=== PATIENT | female | born 1945 | race Caucasian/White ===

== ENCOUNTER → 2016-03-21 | Outpatient (CLI) | payer OTHER ==
--- NOTE | 2016-03-21 08:36 | US ---
Neck Ultrasound Indication: Nontoxic single nodule. Technique: Thyroid ultrasound is performed. Findings: Right thyroid gland measures 4.4 x 1.2 x 1.2 cm. It is homogeneous. No nodules. No cysts. Left thyroid gland measures 3.8 x 1 x 1.1 cm. The single hypoechoic nodule is avascular, 7 x 4 x 5 mm , and contains no calcifications. Thyroid isthmus is 3 mm. Vascularities are normal. No lymph nodes. Impression: Small 7 mm avascular hypoechoic lesion at the upper aspect of the left thyroid gland. Oth erwise normal thyroid ultrasound.
== END ==
LOC: CIMAGING 07:53
PROVIDERS: ATTEND Nurse Practitioner Family
DX: E04.1 Nontoxic single thyroid nodule (principal); R94.6 Abnormal results of thyroid function studies
CPT/HCPCS: 76536-PO

== ENCOUNTER → 2016-04-05 | Outpatient (CLI) | payer OTHER | LOC: CIMAGING 09:56 | DX: Z12.31 Encounter for screening mammogram for malignant neoplasm of breast (principal) | CPT/HCPCS: G0202 ==

== ENCOUNTER 2016-12-22 15:52 | Emergency (ER) | payer OTHER ==
[2016-12-22 16:14] VITALS: RESP 18; TEMP 98
[2016-12-22 16:41] LABS: PLATELET COUNT 217 10^3/uL (150-400)
--- NOTE | 2016-12-22 16:56 | EDPHY ---
H & P Stated Complaint: c/o N/Chills /Shaking/ blurred vision on and off since 1200- told to go ED Time Seen by Provider: 12/22/16 16:09 HPI/ROS: Chief Complaint: Nausea, blurry vision, shaking, chills HPI: 71-year-old woman who began having some nausea with some blurry vision at 12:30 p.m. this afternoon. She started feeling some shaking and had chills in her hands and feet. She called her primary care physician was instructed to come in to evaluate for possible stroke. Patient states the symptoms are all gone now. She does state that she did start taking Aricept for the 1st time yesterday, she took it yesterday a.m. and took it at 9 o'clock this morning. She is currently being worked up for possible Parkinson's versus MRI, she is being followed by Dr. valentin kennedy, neurologist at [facility]. She denies any cough. No chest pain. No syncope. She is currently complaining of some mild chills in her fingers and toes but otherwise is without complaint. ROS: 10 point Review of Systems is negative except as noted in the HPI. PMH: Spinal stenosis, possible Parkinson's verses Alzheimer's Social History: No smoking, occasional alcohol, no recreational drug use Family History: non-contributory Physical Exam: Gen: Awake, Alert, No Distress HEENT: Nose: no rhinorrhea Eyes: PERRLA, EOMI Mouth: Moist mucosa Neck: Supple, no JVD Chest: nontender, lungs clear to auscultation Heart: S1, S2 normal, no murmur Abd: Soft, non-tender, no guarding Back: no CVA tenderness, no midline tenderness Ext: no edema, non-tender Skin: no rash Neuro: CN II-XII intact, Sensation grossly intact, Strength 5/5 in bilateral upper and lower extremities, normal finger-nose, normal heel-rodarte, normal deep tendon reflexes in bilateral upper lower extremities. - Personal History Current Tetanus Diphtheria and Acellular Pertussis (TDAP): Yes - Medical/Surgical History Other PMH: cerviacl stenosis. Depression - Social History Smoking Status: Never smoked Constitutional: Initial Vital Signs Temperature (C) 36.6 C 12/22/16 16:12 Heart Rate 64 12/22/16 16:12 Respiratory Rate 18 12/22/16 16:12 Blood Pressure 172/80 H 12/22/16 16:12 O2 Sat (%) 94 12/22/16 16:12 O2 Delivery Mode Room Air Allergies/Adverse Reactions: No Known Allergies Allergy (Unverified 12/22/16 16:11) Home Medications: Medication Instructions Recorded Aricept 12/22/16 Flonase Nasal [place] 12/22/16 Hormone Cream 12/22/16 Medical Decision Making ED Course/Re-evaluation: Patient with multiple vague complaints including blurry vision, lightheadedness , chills in her fingers. She is afebrile. Labs in your completely normal. I think her symptoms stem from her just starting Aricept yesterday. She has no symptoms or focal neural deficits here. Given the different symptoms she is having it is not fitting with acute thromboembolic event. I have discussed this awake great length with her. She has normal exam at this time. Will discharge her with follow up with her neurologist at [facility]. - Data Points Laboratory Results: Laboratory Results 12/22/16 Unknown 12/22/16 Unknown 12/22/16 12/22/16 12/22/16 Unknown Unknown Unknown WBC 6.09 10^3/uL 10^3/uL (3.80-9.50) RBC 4.58 10^6/uL 10^6/uL (4.18-5.33) Hgb 14.6 g/dL g/dL (12.6-16.3) Hct 42.5 % % (38.0-47.0) MCV 92.8 fL fL (81.5-99.8) MCH 31.9 pg pg (27.9-34.1) MCHC 34.4 g/dL g/dL (32.4-36.7) RDW 13.2 % % (11.5-15.2) Plt Count 217 10^3/uL 10^3/uL (150-400) MPV 10.0 fL fL (8.7-11.7) Neut % (Auto) 66.5 % % (39.3-74.2) Lymph % (Auto) 25.0 % % (15.0-45.0) [place] % (Auto) 6.9 % % (4.5-13.0) Eos % (Auto) 0.8 % % (0.6-7.6) Baso % (Auto) 0.5 % % (0.3-1.7) Nucleat RBC Rel Count 0.0 % % (0.0-0.2) Absolute Neuts (auto) 4.05 10^3/uL 10^3/uL (1.70-6.50) Absolute Lymphs (auto) 1.52 10^3/uL 10^3/uL (1.00-3.00) Absolute Monos (auto) 0.42 10^3/uL 10^3/uL (0.30-0.80) Absolute Eos (auto) 0.05 10^3/uL 10^3/uL (0.03-0.40) Absolute Basos (auto) 0.03 10^3/uL 10^3/uL (0.02-0.10) Absolute Nucleated RBC 0.00 10^3/uL 10^3/uL (0-0.01) Immature Gran % 0.3 % % (0.0-1.1) Immature Gran # 0.02 10^3/uL 10^3/uL (0.00-0.10) Sodium 138 mEq/L mEq/L (134-144) Potassium 4.5 mEq/L mEq/L (3.5-5.2) Chloride 103 mEq/L mEq/L (97-110) Carbon Dioxide 25 mEq/l mEq/l (22-31) Anion Gap 10 mEq/L mEq/L (8-16) BUN 15 mg/dL mg/dL (7-23) Creatinine 0.8 mg/dL mg/dL (0.6-1.0) Estimated GFR > 60 Glucose 99 mg/dL mg/dL (70-100) Calcium 9.6 mg/dL mg/dL (8.5-10.4) Total Bilirubin 0.8 mg/dL mg/dL (0.1-1.4) AST 28 IU/L IU/L (14-46) ALT 40 IU/L IU/L (9-52) Alkaline Phosphatase 58 IU/L IU/L (38-126) Total Protein 7.2 g/dL g/dL (6.3-8.2) Albumin 4.2 g/dL g/dL (3.5-5.0) Urine Color PALE YELLOW Urine Appearance CLEAR Urine pH 7.0 (5.0-7.5) Ur Specific [place] 1.010 (1.002-1.030) Urine Protein NEGATIVE (NEGATIVE) Urine Ketones NEGATIVE (NEGATIVE) Urine Blood NEGATIVE (NEGATIVE) Urine Nitrate NEGATIVE (NEGATIVE) Urine Bilirubin NEGATIVE (NEGATIVE) Urine Urobilinogen 0.2 EU EU (0.2-1.0) Ur Leukocyte Esterase NEGATIVE (NEGATIVE) Urine Glucose NEGATIVE (NEGATIVE) Departure - Departure Disposition: Home, Routine, Self-Care Clinical Impression: Medication reaction Condition: Good Instructions: Acute Nausea and Vomiting (ED) Additional Instructions: Follow up with your neurologist, Dr. Durán in, in 2-3 days. Return to the emergency department for worsening nausea, vision changes, she chills, fever, cough, chest pain, or any other concerns. Referrals: CAROL DECKER NP [Primary Care Provider] - As per Instructions
[2016-12-22 17:51] VITALS: BP 161/87; PULSE 61; O2SAT 97
== END 2016-12-22 17:50 | disposition home or self-care (01) ==
LOC: CED 15:52
DX: R11.0 Nausea (principal); T44.0X5A Adverse effect of anticholinesterase agents, initial encounter
CPT/HCPCS: 80053-PO; 81003-PO; 85025-PO

== ENCOUNTER → 2017-05-22 | Outpatient (CLI) | payer OTHER | LOC: CIMAGING 14:25 | PROVIDERS: ATTEND Nurse Practitioner Family | DX: Z12.31 Encounter for screening mammogram for malignant neoplasm of breast (principal) ==

== ENCOUNTER 2018-05-07 19:02 | Emergency (ER) | payer OTHER ==
[2018-05-07] MEDS ORDERED: NS 1,000 ML IV ONE (20:03)
[2018-05-07 20:04] VITALS: BP 163/60
--- NOTE | 2018-05-07 20:22 | EDPHY ---
H & P Stated Complaint: Black non sticky bowel motion by 1 today. Time Seen by Provider: 05/07/18 19:37 HPI/ROS: This patient reports dark stools and slight increased number of stools a considered for potential GI bleed this started over the past 24 hr. She reports slight lightheadedness and anxiety with her symptoms. She denies any other associated symptoms. She does recall having this in the past and she does not report any obvious dietary causes. She denies any recent Pepto- Bismol. She denies any significant NSAID use. She has no other associated symptoms. She came in by private vehicle. Constitutional: No significant fatigue. No fevers. HEENT: No complaints Pulmonary: No dyspnea Cardiovascular: No chest pain heart palpitations. GI: No nausea vomiting abdominal pain. She maintains normal appetite. 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 Depression - Social History Smoking Status: Never smoked Alcohol Use: None Drug Use: None - Physical Exam Exam: General Appearance: Alert, no distress. Eyes: Pupils equal and round no pallor or injection. ENT, Mouth: Mucous membranes moist. Respiratory: There are no retractions, lungs are clear to auscultation. Cardiovascular: Regular rate and rhythm. Gastrointestinal: Abdomen is soft and nontender, no masses, bowel sounds normal. Rectal exam: Brown stool, Hemoccult negative Neurological: GCS 15 Skin: Warm and dry, no rashes. Musculoskeletal: Neck is supple nontender. Extremities are symmetrical, full range of motion. Psychiatric: Mood and affect normal DIFFERENTIAL DIAGNOSIS: After history and physical exam differential diagnosis was considered for food intolerance, viral illness, ruled out GI bleed with Hemoccult-negative stool. Constitutional: Initial Vital Signs Temperature (C) 36.6 C 05/07/18 19:20 Heart Rate 52 L 05/07/18 19:20 Respiratory Rate 16 05/07/18 19:20 Blood Pressure 130/81 H 05/07/18 19:20 O2 Sat (%) 98 05/07/18 19:20 O2 Delivery Mode Room Air Allergies/Adverse Reactions: No Known Allergies Allergy (Verified 05/07/18 19:17) Home Medications: Medication Instructions Recorded Flonase Nasal [place] 12/22/16 Hormone Cream 12/22/16 Medical Decision Making ED Course/Re-evaluation: Studies: CBC POC is normal POC basic metabolic panel is normal POC Hemoccult stool is negative. Discussion: Patient with change in stool color but Hemoccult-negative stable with normal H&H and platelets here tonight. She will follow up with Gastroenterology for any ongoing symptoms. - Data Points Laboratory Results: 05/07/18 19:54 POC Sodium 142 mEq/L mEq/L (135-145) POC Potassium 3.7 mEq/L mEq/L (3.3-5.0) POC Chloride 103.0 mEq/L mEq/L (97-110) POC Total CO2 26 mEq/L mEq/L (22-31) POC BUN 17 mg/dL mg/dL (7-23) POC Creatinine 0.8 mg/dL mg/dL (0.6-1.0) POC Glucose 92 mg/dL mg/dL (70-100) POC Calcium 9.6 mg/dL mg/dL (8.5-10.4) Medications Given: Discontinued Medications Sodium Chloride (Ns) 1,000 mls @ 0 mls/hr IV ONCE ONE; Wide Open PRN Reason: Protocol Stop: 05/07/18 20:04 Last Admin: 05/07/18 20:29 Dose: Not Given Point of Care Test Results: CBC CBC Collection Date 05/07/18 CBC Collection Time 19:40 WBC 5.66 RBC 4.63 HGB 14.3 HCT 43.2 PLT 213 Neut # 3.36 Neut 59.4 LYMPH # 1.58 LYMPH 27.9 MCV 93.3 Chemistry 05/07/18 19:54 POC Sodium 142 mEq/L mEq/L (135-145) POC Potassium 3.7 mEq/L mEq/L (3.3-5.0) POC Chloride 103.0 mEq/L mEq/L (97-110) POC Total CO2 26 mEq/L mEq/L (22-31) POC BUN 17 mg/dL mg/dL (7-23) POC Creatinine 0.8 mg/dL mg/dL (0.6-1.0) POC Glucose 92 mg/dL mg/dL (70-100) POC Calcium 9.6 mg/dL mg/dL (8.5-10.4) Occult Blood Occult Blood Collection Date 05/07/18 Occult Blood Collection Time 20:00 Occult Blood Result Negative/Negative Departure - Departure Disposition: Home, Routine, Self-Care Clinical Impression: Change in stool Condition: Good Instructions: Acute Diarrhea (ED) Additional Instructions: Diagnosis: Change in stool Other the color of her stool change, there is no blood present in it on chemistry testing tonight. Also, your blood count is normal tonight without anemia or abnormal platelet count. Plan: Drink plenty fluids Follow up with Gastroenterology for any ongoing GI symptoms Referrals: CAROL DECKER [employer]OV[employer] ENGINEER [Primary Care Provider] - As per Instructions
== END 2018-05-07 20:40 | disposition home or self-care (01) ==
LOC: CED 19:02
DX: R19.5 Other fecal abnormalities (principal)
CPT/HCPCS: 80048-ER; 85025-QW-ER; 99283-ER

== ENCOUNTER → 2018-05-30 | Outpatient (CLI) | payer OTHER | LOC: CIMAGING 09:07 | PROVIDERS: ATTEND Nurse Practitioner Family | DX: Z12.31 Encounter for screening mammogram for malignant neoplasm of breast (principal) ==

== ENCOUNTER 2018-07-24 15:39 | Emergency (ER) | payer OTHER | END 2018-07-24 17:31 | disposition home or self-care (01) | LOC: CED 15:39 ==